=== PATIENT | male | born 1945 | race Caucasian/White ===

== ENCOUNTER 2017-01-15 10:18 | Outpatient (CLI) | payer MEDICARE, OTHER ==
[2017-01-15 10:38] LABS: BASOPHILS % (AUTO) 0.5 %; EOSINOPHILS # (AUTO) 0.4 10^3/uL (0.0-0.7); EOSINOPHILS % (AUTO) 6.4 %; HCT - HEMATOCRIT 46.4 % (42.0-52.0); HGB - HEMOGLOBIN 15.9 g/dL (14.0-18.0); LYMPHOCYTES # (AUTO) 1.8 10^3/uL (1.5-3.5); LYMPHOCYTES % (AUTO) 28.4 %; MEAN CORPUSCULAR HEMOGLOBIN 31.5 pg (27.0-31.0); MEAN CORPUSCULAR HGB CONC 34.2 g/dL (32.0-36.0); MEAN PLATELET VOLUME 7.5 fL (7.4-11.4); MONOCYTES # (AUTO) 0.8 10^3/uL (0.0-1.0); MONOCYTES % (AUTO) 12.4 %; NEUTROPHILS # (AUTO) 3.2 10^3/uL (1.5-6.6); NEUTROPHILS % (AUTO) 52.3 %; NUCLEATED RED BLOOD CELLS AUTO 0.1 /100WBC; RED BLOOD COUNT 5.04 10^6/uL (4.70-6.10); RED CELL DISTRIBUTION WIDTH 13.1 % (12.0-15.0); UNCORRECTED WHITE BLOOD COUNT 6.2 x10^3/uL; WHITE BLOOD COUNT 6.2 x10^3/uL (4.8-10.8)
[2017-01-15 10:54] LABS: ALBUMIN/GLOBULIN RATIO 1.3 (1.0-2.2); BILIRUBIN,TOTAL 0.8 mg/dL (0.2-1.0); BUN - BLOOD UREA NITROGEN 21 mg/dL (6-20); CALCIUM 9.5 mg/dL (8.5-10.3); CARBON DIOXIDE - CO2 29 mmol/L (21-32); CHLORIDE 104 mmol/L (101-111); CHOL/HDL RATIO 3.2 (<5.0); CHOLESTEROL 141 mg/dL; GFR - MDRD 74 (>89); GLUCOSE 109 mg/dL (70-100); HDL CHOLESTEROL 44 mg/dL; LDL/HDL RATIO 1.8 (<3.6); POTASSIUM 4.5 mmol/L (3.5-5.0); SODIUM 140 mmol/L (135-145); TOTAL PROTEIN 7.5 g/dL (6.7-8.2); TRIGLYCERIDES 87 mg/dL; VLDL CHOLESTEROL 17 mg/dL
== END 2017-01-15 10:19 | disposition home or self-care (01) ==
LOC: LAB 10:18
PROVIDERS: ATTEND Family Medicine
DX: Z00.00 Encounter for general adult medical examination without abnormal findings (principal); E78.5 Hyperlipidemia, unspecified; Z12.5 Encounter for screening for malignant neoplasm of prostate
CPT/HCPCS: 36415; 80053; 80061; 85025; G0103; 84153

== ENCOUNTER 2017-03-05 08:25 | Day surgery (SDC) | payer MEDICARE, OTHER ==
[2017-03-05] MEDS ORDERED: LACTATED RINGERS 1,000 ML IV ONE (08:45)
[2017-03-05] MEDS ORDERED: MIDAZOLAM 2 MG/2 ML VIAL IVP ONE (09:57)
[2017-03-05] MEDS ORDERED: fentaNYL 100 MCG/2 ML VIAL IVP ONE (09:57)
[2017-03-05 10:25] VITALS: BP 96/63
== END 2017-03-05 08:26 | disposition home or self-care (01) ==
LOC: SDS 08:25
PROVIDERS: ATTEND Surgery
PROC: 0DJD8ZZ Inspection of Lower Intestinal Tract, Via Natural or Artificial Opening Endoscopic (ICD-10-PCS; principal; 2017-03-05 09:45)
DX: Z12.11 Encounter for screening for malignant neoplasm of colon (principal); K57.30 Diverticulosis of large intestine without perforation or abscess without bleeding; K64.8 Other hemorrhoids; Z87.19 Personal history of other diseases of the digestive system
CPT/HCPCS: G0121; J7120

== ENCOUNTER 2017-12-22 11:10 | Outpatient (CLI) | payer MEDICARE, OTHER | END 2017-12-22 11:11 | disposition home or self-care (01) | LOC: LAB 11:10 | PROVIDERS: ATTEND Specialist | DX: E78.5 Hyperlipidemia, unspecified (principal); I47.2 Ventricular tachycardia ==

== ENCOUNTER 2020-01-07 12:14 | Outpatient (CLI) | payer MEDICARE ==
[2020-01-07 12:55] LABS: ALBUMIN 4.1 g/dL (3.2-5.5); ALBUMIN/GLOBULIN RATIO 1.3 (1.0-2.2); ALKALINE PHOSPHATASE 49 IU/L (42-121); ALT ALANINE AMINOTRANSFERASE 21 IU/L (10-60); AST ASPARTATE AMINOTRANSFERASE 18 IU/L (10-42); BUN - BLOOD UREA NITROGEN 15 mg/dL (6-20); CALCIUM 9.2 mg/dL (8.5-10.3); CARBON DIOXIDE - CO2 26 mmol/L (21-32); CHLORIDE 103 mmol/L (101-111); CHOLESTEROL 127 mg/dL; CREATININE 0.9 mg/dL (0.6-1.2); GLUCOSE 108 mg/dL (70-100); HDL CHOLESTEROL 43 mg/dL; LDL CHOLESTEROL,CALCULATED 68 mg/dL; LDL/HDL RATIO 1.6 (<3.6); MAGNESIUM 2.2 mg/dL (1.7-2.8); SODIUM 138 mmol/L (135-145); TOTAL PROTEIN 7.3 g/dL (6.7-8.2); VLDL CHOLESTEROL 16 mg/dL
== END 2020-01-07 12:15 | disposition home or self-care (01) ==
LOC: LAB 12:14
PROVIDERS: ATTEND Specialist
DX: E78.2 Mixed hyperlipidemia (principal); I47.2 Ventricular tachycardia; I49.3 Ventricular premature depolarization
CPT/HCPCS: 36415; 80053; 80061; 83721; 83735

== ENCOUNTER 2020-02-27 11:51 | Outpatient (CLI) | payer MEDICARE, OTHER ==
--- NOTE | 2020-02-27 14:26 | XRAY Report ---
PROCEDURE: Ankle 2 View LT INDICATIONS: LEFT ANKLE PAIN TECHNIQUE: 2 views of the ankle were acquired. COMPARISON: None FINDINGS: Bones: No fractures or dislocations. Ankle mortise is normally aligned. No suspicious bony lesions . Soft tissues: No tibiotalar joint effusion. Achilles tendon appears normal. IMPRESSION: normal left ankle Reviewed by: Simón Farris on 02/27/2020 2:24 PM [facility] Approved by: Simón Farris on 02/27/2020 2:24 PM [facility] Station ID: [id number]
== END 2020-02-27 11:52 | disposition home or self-care (01) ==
LOC: DI 11:51
PROVIDERS: ATTEND Internal Medicine
DX: M25.572 Pain in left ankle and joints of left foot (principal)

== ENCOUNTER 2021-04-11 10:54 | Outpatient (CLI) | payer MEDICARE, OTHER ==
[2021-04-11 11:26] LABS: ALBUMIN 4.1 g/dL (3.2-5.5); ALBUMIN/GLOBULIN RATIO 1.4 (1.0-2.2); BILIRUBIN,TOTAL 0.9 mg/dL (0.2-1.0); CALCIUM 9.3 mg/dL (8.5-10.3); CREATININE 1.1 mg/dL (0.6-1.2); MAGNESIUM 2.3 mg/dL (1.7-2.8); POTASSIUM 4.5 mmol/L (3.5-5.0)
== END 2021-04-11 10:55 | disposition home or self-care (01) ==
LOC: LAB 10:54
PROVIDERS: ATTEND Specialist
DX: E78.00 Pure hypercholesterolemia, unspecified (principal); I10 Essential (primary) hypertension; I47.1 Supraventricular tachycardia
CPT/HCPCS: 36415; 80053; 81599; 83704; 83735

== ENCOUNTER 2021-09-14 10:11 | Outpatient (CLI) | payer MEDICARE, OTHER ==
[2021-09-14 11:07] LABS: ALBUMIN/GLOBULIN RATIO 1.2 (1.0-2.2); ALKALINE PHOSPHATASE 56 IU/L (42-121); ALT ALANINE AMINOTRANSFERASE 19 IU/L (10-60); AST ASPARTATE AMINOTRANSFERASE 17 IU/L (10-42); BUN - BLOOD UREA NITROGEN 16 mg/dL (6-20); CALCIUM 9.5 mg/dL (8.5-10.3); CARBON DIOXIDE - CO2 27 mmol/L (21-32); CHLORIDE 103 mmol/L (101-111); CHOL/HDL RATIO 3.4 (<5.0); CHOLESTEROL 128 mg/dL; GFR - MDRD 73 (>89); GLUCOSE 112 mg/dL (70-100); HDL CHOLESTEROL 38 mg/dL; LDL CHOLESTEROL,CALCULATED 68 mg/dL; LDL/HDL RATIO 1.8 (<3.6); MAGNESIUM 2.2 mg/dL (1.7-2.8); POTASSIUM 4.4 mmol/L (3.5-5.0); SODIUM 139 mmol/L (135-145); TOTAL PROTEIN 7.3 g/dL (6.7-8.2); TRIGLYCERIDES 108 mg/dL; VLDL CHOLESTEROL 22 mg/dL
[2021-09-17 12:11] LABS: HDL-P (TOTAL) 25.2 umol/L (>=30.5); LDL SIZE 20.4 nm (>20.5); LDL-P 902 nmol/L (<1000); LP-INSULIN RESISTANCE SCORE 65 (<=45); SMALL LDL-P 404 nmol/L (<=527)
== END 2021-09-14 10:12 | disposition home or self-care (01) ==
LOC: LAB 10:11
PROVIDERS: ATTEND Specialist
DX: I42.0 Dilated cardiomyopathy (principal); E78.00 Pure hypercholesterolemia, unspecified; I49.3 Ventricular premature depolarization; I47.2 Ventricular tachycardia; I10 Essential (primary) hypertension
CPT/HCPCS: 36415; 80053; 80061; 83704; 83721; 83735; 84443

== ENCOUNTER 2022-04-05 14:00 | Outpatient (CLI) | payer MEDICARE, OTHER ==
[2022-04-05 14:35] LABS: ALBUMIN 4.2 g/dL (3.2-5.5); ALBUMIN/GLOBULIN RATIO 1.3 (1.0-2.2); BILIRUBIN,TOTAL 1.1 mg/dL (0.2-1.0); CALCIUM 9.5 mg/dL (8.5-10.3); MAGNESIUM 2.2 mg/dL (1.7-2.8); POTASSIUM 4.7 mmol/L (3.5-5.0); TOTAL PROTEIN 7.5 g/dL (6.7-8.2)
[2022-04-07 08:10] LABS: HDL-P (TOTAL) 28.9 umol/L (>=30.5); LDL SIZE 20.5 nm (>20.5); LDL-P 1267 nmol/L (<1000); LP-INSULIN RESISTANCE SCORE 75 (<=45); SMALL LDL-P 663 nmol/L (<=527)
== END 2022-04-05 14:01 | disposition home or self-care (01) ==
LOC: LAB 14:00
PROVIDERS: ATTEND Specialist
DX: E78.00 Pure hypercholesterolemia, unspecified (principal); I49.3 Ventricular premature depolarization
CPT/HCPCS: 36415; 80053; 83704; 83735

== ENCOUNTER 2022-06-05 13:38 | Emergency (ER) | payer MEDICARE, OTHER ==
[2022-06-05 13:49] VITALS: BP 111/61
--- NOTE | 2022-06-05 14:30 | XRAY Report ---
PROCEDURE: Finger(s) LT INDICATIONS: Trauma TECHNIQUE: AP hand, 3 views of the third finger(s) acquired. COMPARISON: None FINDINGS: Bones: No fractures or dislocations. No suspicious bony lesions. Arthritic changes are present. Soft tissues: No suspicious soft tissue calcifications. IMPRESSION: No visualized acute fracture or dislocation. However, occult injury cannot be excluded. Recommend kindra rt interval imaging follow-up in 7-10 days as clinically indicated for additional evaluation. Reviewed by: Samantha Mcnair MD on 06/05/2022 2:29 PM PDT Approved by: Samantha Mcnair MD on 06/05/2022 2:29 PM PDT Station ID: [id number]
--- NOTE | 2022-06-05 15:20 | ED Physician Documentation ---
History of Present Illness - Stated complaint Stated Complaint: L FINGER PX - Chief complaint Chief Complaint: Trauma Ext - History obtained from History obtained from: Patient - History of Present Illness Timing: How many weeks ago (2) Pain level max: 3 Pain level now: 2 - Additonal information Additional information: Patient states he jammed his L 3rd digit 2 weeks ago and continues to have swelling. No numbness or tingling. No skin changes. worse with movement and better with rest. Review of Systems Neurologic: denies: Numbness PD PAST MEDICAL HISTORY - Past Medical History Cardiovascular: Hypertension Respiratory: None Endocrine/Autoimmune: None GI: None : None HEENT: None Psych: None Musculoskeletal: None Derm: None - Past Surgical History General: Other Ortho: Other HEENT: Other - Present Medications Home Medications: Ambulatory Orders Medication Instructions Recorded Confirmed Metoprolol Succinate [Toprol Xl] 75 mg PO BID 06/25/14 03/05/17 Multivit-Min/FA/Lycopene/Lut 1 tab PO DAILY 06/25/14 03/05/17 [Centrum Silver Tablet] Atorvastatin [Lipitor] 1 DAILY 03/05/17 - Allergies Allergies/Adverse Reactions: Allergies Allergy/AdvReac Type Severity Reaction Status Date / Time No Known Drug Allergies Allergy Verified 06/05/22 13:49 - Social History Does the pt smoke?: No Smoking Status: Never smoker Does the pt drink ETOH?: Yes Does the pt have substance abuse?: No - Immunizations Immunizations are current?: Yes PD ED PE NORMAL - Vitals Vital signs reviewed: Yes - General General: Alert and oriented X 3, No acute distress - Derm Derm: Warm and dry - Extremities Extremities: Other (L hand - 3rd digit. Swelling to the PIP joint. NVI. limited ROM 2/2 swelling. no skin changes. ) - Neuro Neuro: Alert and oriented X 3 Results - Vitals Vitals: Vital Signs - 24 hr 06/05/22 13:46 Temperature 36.1 C L Heart Rate 63 Respiratory 16 Rate Blood Pressure 111/61 O2 Saturation 97 Oxygen O2 Source Room air - Rads (name of study) L hand xray Relevant Findings:: Final report received, See rad report PD Medical Decision Making - ED course Complexity details: reviewed results, re-evaluated patient, considered differential, d/w patient ED course: 77-year-old male with swelling to the left third digit, PIP joint. No acute findings on x-ray. Neurovascular intact. No skin changes. Appears to be a sprain. Offered splinting, patient declines. We will have him follow-up with his doctor for further care. Patient counseled regarding signs and symptoms for which I believe and urgent re-evaluation would be necessary. Patient with good understanding of and agreement to plan and is comfortable going home at this time This document was made in part using voice recognition software. While efforts are made to proofread this document, sound alike and grammatical errors may occur. Departure - Departure Disposition: 01 Home, Self Care Clinical Impression: Sprain, finger Qualifiers: Encounter type: initial encounter Finger: middle finger Sprain of finger site: interphalangeal joint Laterality: left Qualified Code(s): S63.633A - Sprain of interphalangeal joint of left middle finger, initial encounter Condition: Good Instructions: ED Sprain Finger Follow-Up: Mike Jacobs MD [Primary Care Provider] - As Needed Comments: Your xray does not show any acute abnormality at this time. No fractures or dislocations. This should heal on its own. Please return if you worsen. Discharge Date/Time: 06/05/22 15:24
== END 2022-06-05 15:24 | disposition home or self-care (01) ==
LOC: ED 13:38
DX: S63.633A Sprain of interphalangeal joint of left middle finger, initial encounter (principal); X58.XXXA Exposure to other specified factors, initial encounter; I10 Essential (primary) hypertension
CPT/HCPCS: 99282; 99283

== ENCOUNTER 2022-07-24 15:44 | Outpatient (CLI) | payer MEDICARE, OTHER ==
--- NOTE | 2022-07-24 17:53 | XRAY Report ---
PROCEDURE: Knee 2 View BILAT INDICATIONS: OSTEOARTHRITIS(OA) KNEES,BILATERAL TECHNIQUE: 2 views of the right and left knee(s) were acquired. COMPARISON: None. FINDINGS: Bones: No fractures or dislocations. No suspicious bony lesions. At the right knee there is mild medial and lateral compartment narrowing, medial worse than lateral. Spurring of the patellofemoral compartment also demonstrated, joint space not well evaluated on included views. At the left knee mil d medial and lateral compartment narrowing is present and patellofemoral spurring is present, joint s pace not well evaluated on included views. Soft tissues: No knee joint effusion. No suspicious soft tissue calcifications . IMPRESSION: No acute bony abnormality. Degenerative changes of both knees. Reviewed by: Rojas Casillas MD on 07/24/2022 5:51 PM PDT Approved by: Rojas Casillas MD on 07/24/2022 5:51 PM PDT Station ID: [id number]
--- NOTE | 2022-07-24 17:55 | XRAY Report ---
PROCEDURE: Hips 2V BILAT INDICATIONS: HIP PAIN TECHNIQUE: 2 views of both hips COMPARISON: None. FINDINGS: Bones: No fractures or dislocations. No suspicious bony lesions. Doubtful narrowing of joint spac e and possible osteophytic lipping. Soft tissues: Vascular calcifications are present. IMPRESSION: No acute bony abnormality. If there remains a high clinical concern for fracture, consider cross-sect ional imaging now. If pain persists, consider repeat x-ray in 10-14 days or cross-sectional imaging. Kellgren-Jose scale of osteoarthritis: Grade 1-2: mild osteoarthritis. Reviewed by: Rojas Casillas MD on 07/24/2022 5:53 PM PDT Approved by: Rojas Casillas MD on 07/24/2022 5:53 PM PDT Station ID: [id number]
== END 2022-07-24 15:45 | disposition home or self-care (01) ==
LOC: DI 15:44
PROVIDERS: ATTEND Internal Medicine
DX: M17.0 Bilateral primary osteoarthritis of knee (principal); M25.552 Pain in left hip; M16.0 Bilateral primary osteoarthritis of hip

== ENCOUNTER 2022-11-06 11:05 | Outpatient (CLI) | payer MEDICARE, OTHER ==
[2022-11-06 11:35] LABS: ALBUMIN 4.1 g/dL (3.2-5.5); ALBUMIN/GLOBULIN RATIO 1.5 (1.0-2.2); BILIRUBIN,TOTAL 0.8 mg/dL (0.2-1.0); CALCIUM 9.9 mg/dL (8.5-10.3); POTASSIUM 4.5 mmol/L (3.5-4.5); TOTAL PROTEIN 6.9 g/dL (6.4-8.9)
[2022-11-06 11:46] LABS: THYROID STIMULATING HORMONE 2.26 uIU/mL (0.34-5.60)
[2022-11-08 08:10] LABS: HDL-P (TOTAL) 27.6 umol/L (>=30.5); LDL-P 1649 nmol/L (<1000); LP-INSULIN RESISTANCE SCORE 63 (<=45); SMALL LDL-P 858 nmol/L (<=527)
== END 2022-11-06 11:06 | disposition home or self-care (01) ==
LOC: LAB 11:05
PROVIDERS: ATTEND Specialist
DX: I49.3 Ventricular premature depolarization (principal); I42.0 Dilated cardiomyopathy; E78.00 Pure hypercholesterolemia, unspecified
CPT/HCPCS: 36415; 80053; 83704; 83735; 84443

== ENCOUNTER 2022-11-13 10:37 | Outpatient (CLI) | payer MEDICARE, OTHER ==
[2022-11-13 11:05] LABS: CHOL/HDL RATIO 4.4 (<5.0); CHOLESTEROL 174 mg/dL; HDL CHOLESTEROL 40 mg/dL; LDL CHOLESTEROL,CALCULATED 120 mg/dL; TRIGLYCERIDES 72 mg/dL (48-352); VLDL CHOLESTEROL 14 mg/dL
== END 2022-11-13 10:38 | disposition home or self-care (01) ==
LOC: LAB 10:37
PROVIDERS: ATTEND Specialist
DX: E78.00 Pure hypercholesterolemia, unspecified (principal)
CPT/HCPCS: 36415; 80061; 83721

== ENCOUNTER 2022-11-30 16:32 | Outpatient (CLI) | payer MEDICARE, OTHER ==
--- NOTE | 2022-11-30 16:58 | XRAY Report ---
PROCEDURE: Lumbar Spine 2 View INDICATIONS: DEGENTERATIVE JOINT DISEASE,LUMBAR SPINE TECHNIQUE: 2 views of the lumbar spine were acquired. COMPARISON: None. FINDINGS: Bones: 5 [id number] vertebrae are present. Mild levocurvature of the lumbar spine. There are mu ltilevel degenerative changes of the lumbar spine with facet arthropathy and disc height loss with de generative endplate changes and marginal spurring. This is most pronounced at L4-L5. No vertebral bod y compression fractures. No suspicious bony lesions. Soft tissues: Overlying bowel gas pattern is normal. No suspicious soft tissue calcifications. Ath erosclerotic vascular calcifications. IMPRESSION: Multilevel degenerative changes of the lumbar spine as described above. Reviewed by: Guicho France MD on 11/30/2022 4:56 PM PDT Approved by: Guicho France MD on 11/30/2022 4:56 PM PDT Station ID: [id number]
== END 2022-11-30 16:33 | disposition home or self-care (01) ==
LOC: DI 16:32
PROVIDERS: ATTEND Internal Medicine
DX: M47.816 Spondylosis without myelopathy or radiculopathy, lumbar region (principal)

== ENCOUNTER 2023-05-14 10:51 | Outpatient (CLI) | payer MEDICARE, OTHER ==
[2023-05-14 11:20] LABS: ALBUMIN 4.1 g/dL (3.2-5.5); ALBUMIN/GLOBULIN RATIO 1.5 (1.0-2.2); ALKALINE PHOSPHATASE 55 IU/L (42-121); ALT ALANINE AMINOTRANSFERASE 14 IU/L (10-60); AST ASPARTATE AMINOTRANSFERASE 14 IU/L (10-42); BILIRUBIN,TOTAL 1.1 mg/dL (0.2-1.0); BUN - BLOOD UREA NITROGEN 16 mg/dL (6-20); CARBON DIOXIDE - CO2 31 mmol/L (21-32); CHLORIDE 104 mmol/L (101-111); CHOL/HDL RATIO 3.8 (<5.0); CHOLESTEROL 142 mg/dL; CREATININE 1.1 mg/dL (0.6-1.3); GFR - MDRD 65 (>89); GLUCOSE 106 mg/dL (74-104); HDL CHOLESTEROL 37 mg/dL; LDL CHOLESTEROL,CALCULATED 63 mg/dL; LDL/HDL RATIO 1.7 (<3.6); MAGNESIUM 1.9 mg/dL (1.7-2.3); POTASSIUM 4.3 mmol/L (3.5-4.5); SODIUM 139 mmol/L (135-145); TOTAL PROTEIN 6.9 g/dL (6.4-8.9); TRIGLYCERIDES 212 mg/dL (48-352); VLDL CHOLESTEROL 42 mg/dL
[2023-05-16 09:10] LABS: HDL-P (TOTAL) 24.4 umol/L (>=30.5); LDL SIZE 20.5 nm (>20.5); LDL-P 1184 nmol/L (<1000); LP-INSULIN RESISTANCE SCORE 81 (<=45); SMALL LDL-P 512 nmol/L (<=527)
== END 2023-05-14 10:52 | disposition home or self-care (01) ==
LOC: LAB 10:51
PROVIDERS: ATTEND Specialist
DX: I10 Essential (primary) hypertension (principal); I49.3 Ventricular premature depolarization; E78.00 Pure hypercholesterolemia, unspecified
CPT/HCPCS: 36415; 80053; 80061; 83704; 83721; 83735

== ENCOUNTER 2023-09-05 17:11 | Outpatient (CLI) | payer MEDICARE ==
[2023-09-05 17:25] LABS: BASOPHILS # (AUTO) 0.1 10^3/uL (0.0-0.1); BASOPHILS % (AUTO) 0.8 %; EOSINOPHILS # (AUTO) 0.4 10^3/uL (0.0-0.7); EOSINOPHILS % (AUTO) 5.7 %; HCT - HEMATOCRIT 44.8 % (42.0-52.0); HGB - HEMOGLOBIN 14.9 g/dL (14.0-18.0); LYMPHOCYTES # (AUTO) 2.1 10^3/uL (1.5-3.5); LYMPHOCYTES % (AUTO) 33.3 %; MEAN CORPUSCULAR HEMOGLOBIN 31.1 pg (27.0-31.0); MEAN CORPUSCULAR HGB CONC 33.3 g/dL (32.0-36.0); MEAN CORPUSCULAR VOLUME 93.5 fL (80.0-94.0); MEAN PLATELET VOLUME 9.6 fL (7.4-11.4); MONOCYTES # (AUTO) 0.8 10^3/uL (0.0-1.0); NEUTROPHILS % (AUTO) 47.2 %; PLT - PLATELET COUNT 244 10^3/uL (130-450); RED BLOOD COUNT 4.79 10^6/uL (4.70-6.10); RED CELL DISTRIBUTION WIDTH 12.7 % (12.0-15.0); WHITE BLOOD COUNT 6.3 x10^3/uL (4.8-10.8)
[2023-09-05 17:39] LABS: ALBUMIN 4.3 g/dL (3.2-5.5); ALBUMIN/GLOBULIN RATIO 1.5 (1.0-2.2); ALKALINE PHOSPHATASE 47 IU/L (42-121); ALT ALANINE AMINOTRANSFERASE 14 IU/L (10-60); AST ASPARTATE AMINOTRANSFERASE 16 IU/L (10-42); BILIRUBIN,TOTAL 1.3 mg/dL (0.2-1.0); BUN - BLOOD UREA NITROGEN 25 mg/dL (6-20); CALCIUM 9.9 mg/dL (8.5-10.3); CARBON DIOXIDE - CO2 25 mmol/L (21-32); CHLORIDE 106 mmol/L (101-111); CHOL/HDL RATIO 3.2 (<5.0); CHOLESTEROL 120 mg/dL; CREATININE 1.4 mg/dL (0.6-1.3); GFR - MDRD 49 (>89); GLUCOSE 101 mg/dL (74-104); HDL CHOLESTEROL 38 mg/dL; LDL CHOLESTEROL,CALCULATED 66 mg/dL; LDL/HDL RATIO 1.7 (<3.6); POTASSIUM 4.6 mmol/L (3.5-4.5); SODIUM 139 mmol/L (135-145); TOTAL PROTEIN 7.2 g/dL (6.4-8.9); TRIGLYCERIDES 82 mg/dL (48-352); VLDL CHOLESTEROL 16 mg/dL
[2023-09-05 17:54] LABS: THYROID STIMULATING HORMONE 2.75 uIU/mL (0.34-5.60)
[2023-09-05 20:28] LABS: ESTIMATED AVERAGE GLUCOSE 120 mg/dL (70-100); HEMOGLOBIN A1c% 5.8 % (4.27-6.07)
== END 2023-09-05 17:12 | disposition home or self-care (01) ==
LOC: LAB 17:11
PROVIDERS: ATTEND Internal Medicine
DX: E78.5 Hyperlipidemia, unspecified (principal); I42.8 Other cardiomyopathies; R73.01 Impaired fasting glucose; I49.3 Ventricular premature depolarization
CPT/HCPCS: 36415; 80053; 80061; 83036; 83721; 84443; 85025

== ENCOUNTER 2023-09-28 16:54 | Outpatient (CLI) | payer MEDICARE ==
--- NOTE | 2023-09-28 22:10 | XRAY Report ---
PROCEDURE: Chest 2V INDICATIONS: BRONCHITIS TECHNIQUE: 2 views of the chest were acquired. COMPARISON: None. FINDINGS: Surgical changes and devices: None. Lungs and pleura: No pleural effusions or pneumothorax. Lungs are clear. Mediastinum: Mediastinal contours appear normal. Heart size is normal. Bones and chest wall: No suspicious bony lesions. Overlying soft tissues appear unremarkable. IMPRESSION: No acute cardiopulmonary process. Reviewed by: Alon Flower MD on 09/28/2023 10:09 PM PDT Approved by: Alon Flower MD on 09/28/2023 10:09 PM PDT Station ID: [id number]
== END 2023-09-28 16:55 | disposition home or self-care (01) ==
LOC: DI 16:54
PROVIDERS: ATTEND Physician Assistant
DX: J40 Bronchitis, not specified as acute or chronic (principal)

== ENCOUNTER 2023-12-14 13:15 | Outpatient (CLI) | payer MEDICARE ==
[2023-12-14 13:45] LABS: ALBUMIN 4.2 g/dL (3.2-5.5); ALBUMIN/GLOBULIN RATIO 1.4 (1.0-2.2); BILIRUBIN,TOTAL 1.1 mg/dL (0.2-1.0); CALCIUM 9.8 mg/dL (8.5-10.3); CREATININE 1.1 mg/dL (0.6-1.3); POTASSIUM 4.7 mmol/L (3.5-4.5); TOTAL PROTEIN 7.2 g/dL (6.4-8.9)
== END 2023-12-14 13:16 | disposition home or self-care (01) ==
LOC: LAB 13:15
PROVIDERS: ATTEND Specialist
DX: E78.00 Pure hypercholesterolemia, unspecified (principal); I47.29 Other ventricular tachycardia; I49.3 Ventricular premature depolarization
CPT/HCPCS: 36415; 80053; 83704; 83735